=== PATIENT | male | born 1985 | race Caucasian/White ===

== ENCOUNTER 2017-07-10 18:18 | Inpatient (IN) | payer OTHER ==
[~2017-07-10] VITALS: Ht 160 cm; Wt 88.9 kg
[~2017-07-10 18:18] MED LIST: ADDERALL XR 3030 MG PO; ADDERALL30 MG PO; AFRIN,GENASAL D15 ML BOTH NARES; ALPRAZOLAM2 MG PO; AMBIEN; AMBIEN10 MG PO; AMOX TR-K CLV1 EAC4 PO; AMOXICILLIN500 MG PO; ANAPROX DS550 M1 PO; ANTIVERT25 MG PO; ATARAX,VISTARIL50 MG PO; ATIVAN1 MG PO; Atarax,Vistaril PO; BACTRIM,SEPT1 TABLET PO; BENTYL20 MG PO; BUPROPION HCL150 M2 PO; BUPROPION XL300 MG PO; BUSPAR15 MG PO; BUSPIRONE HCL15 MG PO; CARAFATE100 MG/ML PO; CIPRO500 MG PO; CLONAZEPAM0.5 MG PO; CLONAZEPAM1 MG PO; COZAAR50 MG PO; CYANOCOBAL1000 MCG/2 IM; CYMBALTA20 MG PO; Carafate PO; DIAZEPAM2 MG PO; DILAUDID2 MG PO; DILAUDID4 MG PO; DULCOLAX10 MG PR; EFFEXOR XR150 MG PO; FERROUS SULFAT324 M1 PO; FLAGYL500 MG PO; FLEXERIL10 MG PO; FLEXERIL5 MG PO; GEODON20 MG PO; HYDROMORPHONE HC2 MG PO; KLONOPIN; KLONOPIN1 MG; LAMICTAL200 MG PO; LAMICTAL25 MG PO; LAMOTRIGINE100 MG PO; LORAZEPAM0.5 MG PO; LORCET 5-325 M1 EACH PO; MOTRIN800 MG PO; Milk Of Magnesia,MOM PO; NAPROXEN500 M1 PO; NOHOMEMEDS; ONDANSETRON ODT8 MG PO; OXYCODONE HCL5 MG PO; OXYCODONE-APAP1 EACH PO; OxyCODONE PO; PAROXETINE HCL40 MG PO; PAXIL40 MG PO; PEPCID20 MG PO; PERCOCET 5/31 TABLET PO; PHENERGAN PO; PREDNISONE10 M1 PO; PROMETHAZINE HC25 M1; PROMETHAZINE HC25 M1 PO; PROTONIX40 MG PO; PROZAC40 MG PO; PROzac PO; Protonix PO; QUETIAPINE FUMA50 MG PO; RANITIDINE HCL150 M1 PO; RANITIDINE HCL150 MG PO; REGLAN10 MG PO; ROXICODONE5 MG PO; SEROQUEL50 MG PO; Senokot,Sennagen PO; TIZANIDINE HCL2 M1 PO; TIZANIDINE HCL4 M1 PO; TIZANIDINE HCL4 MG PO; TOPROL XL50 MG PO; TRAMADOL HCL50 MG PO; TRAZODONE HCL50 MG PO; TRUVADA1 TABLET PO; ULTRAM50 MG PO; VALIUM10 MG PO; WELLBUTRIN SR150 MG PO; WELLBUTRIN XL300 MG PO; XANAX; XANAX0.5 MG PO; XANAX1 MG PO; XANAX2 MG PO; ZANAFLEX2 M1 PO; ZANAFLEX4 MG PO; ZANTAC150 MG PO; ZOFRAN ODT4 MG PO; ZOFRAN4 MG PO; ZOFRAN8 MG PO; ZOLPIDEM TARTRA10 MG PO
[2017-07-10 18:52] LABS: APPEARANCE CLEAR ((CLEAR)); BILIRUBIN NEGATIVE; BLOOD NEGATIVE; COLOR YELLOW ((YELLOW)); GLUCOSE (STRIP) NEGATIVE; KETONES NEGATIVE; LEUKOCYTES NEGATIVE; NITRITE NEGATIVE; PROTEIN (STRIP) NEGATIVE; UCUL ADDED? NO; UROBILINOGEN 0.2 MG/DL (0.2-1.0)
[2017-07-10 19:24] LABS: HEMATOCRIT 35.9 % (38.0-50.0); MCH 21.6 PG (29.0-34.0); MCHC 30.6 G/DL (30.0-36.0); MCV 70.5 FL (86-99); PLATELET COUNT 358 K/uL (156-360); RBC DIS.WIDTH-SD 44.7 % (39-53); RED BLOOD COUNT 5.09 M/uL (4.00-5.50); WHITE BLOOD COUNT 7.8 K/uL (4.1-10.2)
[2017-07-10 19:34] LABS: CHLORIDE 107 mEq/L (99-109); POTASSIUM 4.5 mEq/L (3.7-5.4); SODIUM 138 mEq/L (136-147)
[2017-07-10 19:37] LABS: GLUCOSE 111 mg/dL (70-99); TOTAL PROTEIN 7.4 g/dL (6.4-8.3)
[2017-07-10 19:39] LABS: TOTAL BILIRUBIN 0.2 mg/dL (0.0-1.0)
[2017-07-10 19:40] LABS: ALKALINE PHOSPHATASE 95 IU/L (3-129); GFR ESTIMATE (CALCULATED) > 59 mL/min/ (58.99-99999)
[2017-07-10 19:41] LABS: UREA NITROGEN (BUN) 13 mg/dL (9-23)
[2017-07-10 19:42] LABS: AST (GOT) 19 IU/L (2-34)
[2017-07-10 19:43] LABS: ALT (GPT) 17 IU/L (3-49)
[2017-07-10 19:44] LABS: LIPASE 142 U/L (1.0-51.0)
[2017-07-11] MEDS ORDERED: EFFEXOR XR150 MG PO (00:36)
[2017-07-11 02:09] VITALS: BP 122/75
[2017-07-11 04:01] VITALS: BP 131/62
[2017-07-11 08:39] LABS: ALBUMIN 3.6 G/DL (3.2-4.8); ALKALINE PHOSPHATASE 90 IU/L (3-129); ALT (GPT) 210 IU/L (3-49); AST (GOT) 499 IU/L (2-34); CHLORIDE 102 MEQ/L (99-109); CREATININE 0.9 MG/DL (0.6-1.3); GFR ESTIMATE (CALCULATED) > 59 mL/min/ (58.99-99999); GLUCOSE 87 mg/dL (70-99); POTASSIUM 4.3 MEQ/L (3.7-5.4); SODIUM 135 MEQ/L (136-147); TOTAL BILIRUBIN 0.8 MG/DL (0.0-1.0); TOTAL PROTEIN 6.1 G/DL (6.4-8.3); UREA NITROGEN (BUN) 9 mg/dL (9-23)
[2017-07-11 10:39] LABS: LIPASE 999 U/L (1.0-51.0)
[2017-07-11 11:20] VITALS: BP 138/94
[2017-07-11 13:54] VITALS: BP 157/97
[2017-07-12 11:49] LABS: HEPATITIS B SURFACE ANTIGEN Nonreactive; HEPATITIS C ANTIBODY Nonreactive
[2017-07-12 11:50] LABS: ANTI-HEPATITIS A VIRUS (IGM) Nonreactive
[2017-07-12 11:51] LABS: ANTI-HEPATITIS B CORE (IGM) Nonreactive
== END 2017-07-11 14:14 | disposition left against medical advice (07) | DRG 440 ==
LOC: EME 18:18 → EDOF 07-11 01:19 → 5WEST 07-11 01:19 → ENRESERV 07-11 01:20 → 5WEST 07-11 02:03
PROVIDERS: Internal Medicine; Physician Assistant
DX: K85.90 Acute pancreatitis without necrosis or infection, unspecified (principal); F31.9 Bipolar disorder, unspecified; F60.3 Borderline personality disorder; D50.9 Iron deficiency anemia, unspecified; F41.0 Panic disorder [episodic paroxysmal anxiety]; Z79.899 Other long term (current) drug therapy; Z87.891 Personal history of nicotine dependence; Z83.3 Family history of diabetes mellitus; Z82.49 Family history of ischemic heart disease and other diseases of the circulatory system
CPT/HCPCS: 74177; 80053; 80074; 81003; 82272; 83690; 85027; 87177; 87329; 87493; 93005; 99281; 99285; J2270; J2405; J2765; J7030; S0028